=== PATIENT | male | born 1935 | race Caucasian/White ===

== ENCOUNTER 2021-02-27 09:04 | Inpatient (IN) | payer MEDICARE ==
[~2021-02-27] VITALS: Ht 185.4 cm; Wt 107.6 kg
[2021-02-27 10:24] VITALS: BP 100/49
[2021-02-27] MEDS ORDERED: PLEASE ENTER HEIGHT AND WEIGHT MC SCH (10:30)
[2021-02-27] MEDS ORDERED: ONDANSETRON 2MG/ML, 2ML IVPush PRN ×2 (10:30→12:00)
[2021-02-27] MEDS ORDERED: SODIUM CHLORIDE 0.9% 1,000 ML IV SCH ×2 (10:30→16:30)
[2021-02-27 10:40] LABS: BASOPHILS % (AUTO) 1 % (0-1); EOSINOPHILS % (AUTO) 6 % (1-7); LYMPHOCYTES % (AUTO) 17 % (22-44); MEAN CORPUSCULAR HEMOGLOBIN 28.9 pg (27.5-34.5); MEAN CORPUSCULAR HGB CONC 32.6 g/dL (33.2-36.2); MEAN PLATELET VOLUME 8.4 fL (7.4-10.4); MONOCYTES % (AUTO) 8 % (2-9); NEUTROPHILS % (AUTO) 68 % (42-75); PLATELET COUNT 138 x10^3/uL (130-400); RED BLOOD COUNT 5.14 x10^6/uL (4.38-5.82); RED CELL DISTRIBUTION WIDTH 18.4 % (9.4-14.8)
[2021-02-27 10:46] LABS: MD NO
[2021-02-27 10:52] LABS: ANION GAP 4 mmol/L (5-15); CALCIUM 8.9 mg/dL (8.5-10.1); CHLORIDE 107 mmol/L (98-107); INTERNATIONAL NORMALIZED RATIO 1.1 (0.93-1.1); PROTHROMBIN TIME 11.8 Seconds (9.6-11.5)
[2021-02-27 10:56] LABS: CREATININE 1.74 mg/dL (0.7-1.3)
[2021-02-27] MEDS ORDERED: SIMV40TA20 PO (10:56)
[2021-02-27] MEDS ORDERED: RIVA20TA PO (10:56)
[2021-02-27] MEDS ORDERED: ASPI81TA45 PO (10:56)
[2021-02-27] MEDS ORDERED: NIAC500T85 PO (10:56)
[2021-02-27] MEDS ORDERED: SPIR25TA5 PO (10:56)
[2021-02-27] MEDS ORDERED: METO25TA91 PO (10:56)
[2021-02-27] MEDS ORDERED: FURO-92 PO (10:56)
[2021-02-27] MEDS ORDERED: EPHEDRINE 50 MG/ML, 1ML IM PRN (12:00)
[2021-02-27] MEDS ORDERED: OXYcodone 5 MG/5 ML ORAL.SOL UDC PO PRN (12:00)
[2021-02-27] MEDS ORDERED: morphine SULFATE 10 MG/ML, 1ML IVPush PRN (12:00)
[2021-02-27] MEDS ORDERED: EPHEDRINE 50 MG/ML, 1ML IVPush PRN (12:00)
[2021-02-27] MEDS ORDERED: ACETAMINOPHEN 325 MG TABLET PO PRN ×2 (12:00→16:30)
[2021-02-27] MEDS ORDERED: LABETALOL 5MG/ML, 20ML IV PRN (12:00)
[2021-02-27] MEDS ORDERED: DIAZEPAM 5 MG/ML, 2ML IVPush PRN (12:00)
[2021-02-27] MEDS ORDERED: FENTANYL PF 100 MCG/2ML IV PRN (12:00)
[2021-02-27] MEDS ORDERED: DIPHENHYDRAMINE 50 MG/ML, 1ML IVPush PRN (12:00)
[2021-02-27] MEDS ORDERED: PROMETHAZINE 25 MG/ML, 1ML IVPush PRN (12:00)
[2021-02-27] MEDS ORDERED: FENTANYL PF 250 MCG/5ML ONE (14:21)
[2021-02-27] MEDS ORDERED: SUCCINYLCHOLINE 20 MG/ML, 10ML ONE (14:30)
[2021-02-27] MEDS ORDERED: CEFAZOLIN 1,000 MG ONE (14:30)
[2021-02-27] MEDS ORDERED: ROCURONIUM 10 MG/ML,10ML ONE (14:30)
[2021-02-27] MEDS ORDERED: ONDANSETRON 2MG/ML, 2ML ONE (14:30)
[2021-02-27] MEDS ORDERED: PROPOFOL 10 MG/ML, 20ML ONE ×2 (14:30)
[2021-02-27] MEDS ORDERED: ONDANSETRON 2MG/ML, 2ML IV PRN (16:30)
[2021-02-27] MEDS ORDERED: hydrALAzine 20 MG/ML, 1ML IVPush PRN (16:30)
[2021-02-27] MEDS ORDERED: HYDROcodone/APAP 5/325 TABLET PO PRN (16:30)
[2021-02-27] MEDS ORDERED: LABETALOL 5MG/ML, 20ML IVPush PRN (16:30)
[2021-02-27] MEDS ORDERED: MAALOX/HYOSCYAMINE/LIDOCAINE 45 ML BTL PO PRN (16:30)
[2021-02-27] MEDS ORDERED: RIVAROXABAN 10 MG TABLET ONE (16:54)
[2021-02-27] MEDS ORDERED: RIVAROXABAN 15 MG TABLET PO SCH (17:00)
[2021-02-27 19:43] VITALS: BP 93/62
[2021-02-27] MEDS ORDERED: SIMVASTATIN 40 MG TABLET PO SCH (21:00)
[2021-02-27 23:53] VITALS: BP 97/63
[2021-02-28 05:17] LABS: BASOPHILS % (AUTO) 1 % (0-1); EOSINOPHILS % (AUTO) 5 % (1-7); LYMPHOCYTES % (AUTO) 11 % (22-44); MEAN CORPUSCULAR HEMOGLOBIN 29.2 pg (27.5-34.5); MEAN CORPUSCULAR HGB CONC 32.7 g/dL (33.2-36.2); MEAN PLATELET VOLUME 8.7 fL (7.4-10.4); MONOCYTES % (AUTO) 9 % (2-9); NEUTROPHILS % (AUTO) 75 % (42-75); PLATELET COUNT 129 x10^3/uL (130-400); RED BLOOD COUNT 4.84 x10^6/uL (4.38-5.82); RED CELL DISTRIBUTION WIDTH 18.3 % (9.4-14.8)
[2021-02-28 05:22] LABS: ANION GAP 6 mmol/L (5-15); CALCIUM 8.5 mg/dL (8.5-10.1); CHLORIDE 107 mmol/L (98-107); CREATININE 1.51 mg/dL (0.7-1.3)
[2021-02-28 05:24] LABS: MD NO
[2021-02-28 07:16] VITALS: BP 109/67
[2021-02-28] MEDS ORDERED: DIGOXIN 0.25 MG/ML, 2ML IVPush ONE ×2 (08:00→13:15)
[2021-02-28] MEDS ORDERED: ASPIRIN 81 MG TABLET EC PO SCH (09:00)
[2021-02-28] MEDS ORDERED: METOPROLOL SUCCINATE 25 MG TAB.ER.24H PO SCH ×2 (09:00→12:30)
[2021-02-28] MEDS ORDERED: SPIRONOLACTONE 25 MG TABLET PO SCH (09:00)
[2021-02-28] MEDS ORDERED: FUROSEMIDE 40 MG TABLET PO SCH (09:00)
[2021-02-28] MEDS ORDERED: SODIUM CHLORIDE 0.9%, 250ML IVBOLUS ONE (12:30)
[2021-02-28] MEDS ORDERED: ACET325T26 PO (13:05)
[2021-02-28 14:09] VITALS: BP 104/66
== END 2021-02-28 15:15 | disposition home or self-care (01) | DRG 266 ==
LOC: CACL 09:04 → ORIP 10:17 → 5SO 17:42 → DCLOUNGE 02-28 15:10
PROVIDERS: ADMIT Internal Medicine Cardiovascular Disease; ATTEND Internal Medicine Cardiovascular Disease
PROC: B245ZZ4 Ultrasonography of Left Heart, Transesophageal (ICD-10-PCS; 2021-02-27)
PROC: 02UG3JZ Supplement Mitral Valve with Synthetic Substitute, Percutaneous Approach (ICD-10-PCS; principal; 2021-02-27 14:00)
DX: I34.0 Nonrheumatic mitral (valve) insufficiency (principal); I50.23 Acute on chronic systolic (congestive) heart failure; D68.69 Other thrombophilia; I95.9 Hypotension, unspecified; Z20.822 Contact with and (suspected) exposure to COVID-19; I25.10 Atherosclerotic heart disease of native coronary artery without angina pectoris; I48.91 Unspecified atrial fibrillation; Z95.5 Presence of coronary angioplasty implant and graft; Z79.899 Other long term (current) drug therapy; Z79.01 Long term (current) use of anticoagulants; Z79.891 Long term (current) use of opiate analgesic; Z95.818 Presence of other cardiac implants and grafts; Z00.6 Encounter for examination for normal comparison and control in clinical research program
CPT/HCPCS: 33019; 33418; 36415; 76937; 80048; 83880; 85025; 85347; 85610; 86850; 86900; 86923; 87635; 93005; 93306; 93312; 93321; 93325; 93355; C1766; C1893; C1894; G0378; J0690; J2405; J2704; J3010; C1769; J0330; J1160; J7050

== ENCOUNTER → 2021-04-03 | Outpatient (CLI) | payer MEDICARE ==
[~2021-04-03] MED LIST: ACET325T26 PO; ASPI81TA45 PO; FURO-92 PO; METO25TA91 PO; NIAC500T85 PO; RIVA20TA PO; SIMV40TA20 PO; SPIR25TA5 PO
== END | disposition home or self-care (01) ==
LOC: CVU 12:32
PROVIDERS: ATTEND Internal Medicine Cardiovascular Disease
DX: Z01.810 Encounter for preprocedural cardiovascular examination (principal); I34.0 Nonrheumatic mitral (valve) insufficiency; R06.02 Shortness of breath; I65.29 Occlusion and stenosis of unspecified carotid artery; I48.91 Unspecified atrial fibrillation
CPT/HCPCS: 93306